=== PATIENT | female | born 2000 ===

== ENCOUNTER 2024-09-07 05:34 | Day surgery (SDC) | payer OTHER ==
[2024-09-01 08:17] LABS: BASO % 0.8 % (0.1-1.2); EOS # 0.25 (0.04-0.54); EOS % 2.7 % (0.7-7.0); HEMATOCRIT 42.3 % (34.1-44.9); HEMOGLOBIN 13.6 g/dL (11.2-15.7); LYMPH # 3.31 (1.18-3.74); LYMPH % 35.9 % (19.3-53.1); MEAN CORPUSCULAR HEMOGLOBIN 25.4 pg (25.6-32.2); MONO # 0.64 (0.24-0.82); MONO % 6.9 % (4.7-12.5); NEUT # 4.89 (1.56-6.13); NEUT % 53.2 % (34.0-71.1); PLATELET COUNT 368 K/uL (163-369); RED BLOOD COUNT 5.36 M/uL (3.93-5.22); RED CELL DISTRIBUTION WIDTH 12.4 % (11.6-14.4)
[2024-09-01 08:36] VITALS: BP 127/84
[2024-09-01 08:40] LABS: URINE APPEARANCE Clear; URINE BILIRRUBIN Negative (NEGATIVE); URINE BLOOD Negative; URINE COLOR Yellow; URINE GLUCOSE Negative (NEGATIVE); URINE KETONE Negative (NEGATIVE); URINE LEUKOCYTE Negative; URINE NITRATE Negative; URINE PROTEIN Negative (NEGATIVE); URINE UROBILINOGEN 0.2 E.U./dl
[2024-09-01 08:43] LABS: PARTIAL THROMBOPLASTIN TIME 29.9 SECONDS (22.0-34.0); PROTHROMBIN TIME 10.9 SECONDS (9.0-11.5)
[2024-09-01 08:46] LABS: URINE BACTERIA 411.2 uL (0.0-1933); URINE RBC 3.2 uL (0.0-20.8); URINE WBC 3.3 uL (0.0-23.2)
[2024-09-01 13:08] LABS: ALBUMIN 3.8 gm/dL (3.4-5.0); BILIRUBIN TOTAL 0.4 mg/dL (0.3-1.2); CALCIUM 9.2 mg/dL (8.5-10.1); CREATININE SERUM 0.74 mg/dL (0.55-1.02); GFR 94.86; GLOBULINA 3.4 G/DL (2.4-3.5); POTASSIUM 4.4 mEq/L (3.5-5.1); TOTAL PROTEIN 7.2 gm/dL (6.4-8.2)
[~2024-09-07] VITALS: Ht 154.9 cm; Wt 70.8 kg
[~2024-09-07 05:34] MED LIST: ACID REDUCER20 M1 PO
[2024-09-07] MEDS ORDERED: DEXAMETHASONE SODIUM PHOSPHATE 4 MG/ML VIAL ONE (08:40)
== END 2024-09-07 12:45 | disposition home or self-care (01) ==
LOC: CIR.AMB 05:34
PROVIDERS: ATTEND Otolaryngology
DX: J35.1 Hypertrophy of tonsils (principal); Z88.6 Allergy status to analgesic agent; Z88.5 Allergy status to narcotic agent